=== PATIENT | male | born 1980 | race African-American/Black ===

== ENCOUNTER 2016-12-06 01:52 | Emergency (ER) | payer SELFPAY ==
[~2016-12-06 01:52] MED LIST: CYCL-36 PO; DICL50 PO; VENTAER INH
[2016-12-06 01:56] VITALS: BP 125/67; PULSE 100; RESP 16; TEMP 98.2; O2SAT 96
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
== END 2016-12-06 06:24 | disposition home or self-care (01) ==
LOC: NEPE 01:52
DX: S30.810A Abrasion of lower back and pelvis, initial encounter (principal); S00.01XA Abrasion of scalp, initial encounter; V03.90XA Pedestrian on foot injured in collision with car, pick-up truck or van, unspecified whether traffic or nontraffic accident, initial encounter; Y93.01 Activity, walking, marching and hiking
CPT/HCPCS: 70450; 71010; 72125; 99285

== ENCOUNTER 2017-01-24 05:20 | Emergency (ER) | payer SELFPAY ==
[~2017-01-24] VITALS: Ht 180.3 cm; Wt 70.0 kg
[2017-01-24 05:21] VITALS: BP 124/77; PULSE 100; RESP 15; TEMP 97.9; O2SAT 95
[2017-01-24 05:57] LABS: AUTOMATED NEUTROPHIL # 4.2 TH/MM3 (1.8-7.7); BASOPHIL # 0.1 TH/MM3 (0-0.2); BASOPHIL % 0.9 % (0.0-2.0); EOSINOPHIL # 0.2 TH/MM3 (0-0.4); EOSINOPHIL % 2.4 % (0.0-4.0); HEMATOCRIT 40.8 % (39.0-51.0); HEMOGLOBIN 13.7 GM/DL (13.0-17.0); LYMPH % 24.7 % (9.0-44.0); LYMPHOCYTE # 1.6 TH/MM3 (1.0-4.8); MEAN CELL VOLUME 89.9 FL (80.0-100.0); MEAN CORPUSCULAR HEMOGLOBIN 30.2 PG (27.0-34.0); MEAN CORPUSCULAR HGB CONC 33.6 % (32.0-36.0); MEAN PLATELET VOLUME 8.1 FL (7.0-11.0); MONO % 6.9 % (0.0-8.0); MONOCYTE # 0.5 TH/MM3 (0-0.9); NEUT % 65.1 % (16.0-70.0); PLATELET COUNT 168 TH/MM3 (150-450); RED BLOOD COUNT 4.54 MIL/MM3 (4.50-5.90); RED CELL DISTRIBUTION WIDTH 13.5 % (11.6-17.2); WHITE BLOOD COUNT 6.5 TH/MM3 (4.0-11.0)
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
[2017-01-24 06:23] LABS: ALKALINE PHOSPHATASE 89 U/L (45-117); ALT (GPT) 14 U/L (12-78); TOTAL BILIRUBIN ADULT 0.5 MG/DL (0.2-1.0); TOTAL PROTEIN 6.7 GM/DL (6.4-8.2)
[2017-01-24 07:00] LABS: ALBUMIN 3.4 GM/DL (3.4-5.0); AST (GOT) 14 U/L (15-37); BICARBONATE 25.3 MEQ/L (21.0-32.0); BLOOD UREA NITROGEN 9 MG/DL (7-18); CALCIUM 8.3 MG/DL (8.5-10.1); CHLORIDE 111 MEQ/L (98-107); CREATININE 0.88 MG/DL (0.60-1.30); GLOMERULAR FILTRATION RATE 120 ML/MIN (>89); GLUCOSE,RANDOM 92 MG/DL (74-106); SODIUM (NA) 144 MEQ/L (136-145)
[2017-01-24 09:13] VITALS: BP 113/64; PULSE 71; RESP 16; TEMP 97.9; O2SAT 96
--- NOTE | 2017-01-24 11:21 | PD ---
Data Data Last Documented VS Vital Signs Date Time Temp Pulse Resp B/P (MAP) Pulse Ox O2 Delivery O2 Flow Rate FiO2 01/24/17 09:13 97.9 71 16 113/64 (80) 96 Room Air Orders Orders Complete Blood Count With Diff (01/24/17 05:42) Comprehensive Metabolic Panel (01/24/17 05:42) Psych Screen (01/24/17 05:42) Drug Screen, Random Urine (01/24/17 05:42) Alcohol (Ethanol) (01/24/17 05:42) Diet Regular Basic (01/24/17 Breakfast) Labs Laboratory Tests Test 01/24/17 05:45 White Blood Count 6.5 TH/MM3 Red Blood Count 4.54 MIL/MM3 Hemoglobin 13.7 GM/DL Hematocrit 40.8 % Mean Corpuscular Volume 89.9 FL Mean Corpuscular Hemoglobin 30.2 PG Mean Corpuscular Hemoglobin Concent 33.6 % Red Cell Distribution Width 13.5 % Platelet Count 168 TH/MM3 Mean Platelet Volume 8.1 FL Neutrophils (%) (Auto) 65.1 % Lymphocytes (%) (Auto) 24.7 % Monocytes (%) (Auto) 6.9 % Eosinophils (%) (Auto) 2.4 % Basophils (%) (Auto) 0.9 % Neutrophils # (Auto) 4.2 TH/MM3 Lymphocytes # (Auto) 1.6 TH/MM3 Monocytes # (Auto) 0.5 TH/MM3 Eosinophils # (Auto) 0.2 TH/MM3 Basophils # (Auto) 0.1 TH/MM3 CBC Comment DIFF FINAL Differential Comment Blood Urea Nitrogen 9 MG/DL Creatinine 0.88 MG/DL Random Glucose 92 MG/DL Total Protein 6.7 GM/DL Albumin 3.4 GM/DL Calcium Level 8.3 MG/DL Alkaline Phosphatase 89 U/L Aspartate Amino Transf (AST/SGOT) 14 U/L Alanine Aminotransferase (ALT/SGPT) 14 U/L Total Bilirubin 0.5 MG/DL Sodium Level 144 MEQ/L Potassium Level 3.6 MEQ/L Chloride Level 111 MEQ/L Carbon Dioxide Level 25.3 MEQ/L Anion Gap 8 MEQ/L Estimat Glomerular Filtration Rate 120 ML/MIN Ethyl Alcohol Level 131 MG/DL [facility] Medical Record Reviewed: Yes Supervised Visit with GRANT: Yes Narrative Course Patient is a 36 year old male who was medically cleared by physician last night , he was seen by psychiatric screeners as he was feeling depressed as he was unable to see his son. Patient denies any suicidal or homicidal ideation. Patient was deemed safe to be discharged by psychiatric screeners with outpatient follow-up. Patient was given information for outpatient follow-up. Patient at this time contracts for safety, patient requests to be discharged to home. Patient understands that he may return to the emergency room at any time for reevaluation of his symptoms or if he ever feels unsafe. Patient will be discharged with diagnosis of depression. Diagnosis Primary Impression: Depression Qualified Codes: F32.9 - Major depressive disorder, single episode, unspecified Additional Impression: Alcohol intoxication Qualified Codes: F10.929 - Alcohol use, unspecified with intoxication, unspecified [facility] Patient Instructions: General Instructions Additional Instruction: Please follow up with your primary care doctor Please follow up with Bao Calderon Return to ER as needed or if symptoms return Please drink alcohol responsibly Scripts No Active Prescriptions or Reported Meds Disposition: 01 DISCHARGE HOME Condition: Stable Gisela Barlow DO Jan 24, 2017 11:21
== END 2017-01-24 11:36 | disposition home or self-care (01) ==
LOC: NEPD 05:20
DX: F32.9 Major depressive disorder, single episode, unspecified (principal); F10.929 Alcohol use, unspecified with intoxication, unspecified; H91.91 Unspecified hearing loss, right ear; F17.200 Nicotine dependence, unspecified, uncomplicated; Z87.09 Personal history of other diseases of the respiratory system; Z87.19 Personal history of other diseases of the digestive system
CPT/HCPCS: 80053; 80307; 85025; 99284

== ENCOUNTER 2017-02-05 01:30 | Emergency (ER) | payer OTHER ==
[~2017-02-05] VITALS: Ht 177.8 cm; Wt 70.0 kg
[2017-02-05 01:40] VITALS: BP 110/78; PULSE 75; RESP 16; TEMP 98.7; O2SAT 98
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
[2017-02-05 03:20] LABS: AUTOMATED NEUTROPHIL # 5.7 TH/MM3 (1.8-7.7); BASOPHIL # 0.1 TH/MM3 (0-0.2); BASOPHIL % 0.8 % (0.0-2.0); EOSINOPHIL # 0.1 TH/MM3 (0-0.4); EOSINOPHIL % 1.1 % (0.0-4.0); HEMATOCRIT 45.9 % (39.0-51.0); HEMO FLAGS DIFF FINAL; LYMPH % 23.1 % (9.0-44.0); LYMPHOCYTE # 1.8 TH/MM3 (1.0-4.8); MEAN CELL VOLUME 90.6 FL (80.0-100.0); MEAN CORPUSCULAR HEMOGLOBIN 30.3 PG (27.0-34.0); MEAN CORPUSCULAR HGB CONC 33.4 % (32.0-36.0); MONO % 3.4 % (0.0-8.0); NEUT % 71.6 % (16.0-70.0); PLATELET COUNT 170 TH/MM3 (150-450); RED BLOOD COUNT 5.07 MIL/MM3 (4.50-5.90); RED CELL DISTRIBUTION WIDTH 13.5 % (11.6-17.2); WHITE BLOOD COUNT 7.9 TH/MM3 (4.0-11.0)
[2017-02-05 03:31] LABS: ALT (GPT) 19 U/L (12-78); ANION GAP 11 MEQ/L (5-15); AST (GOT) 15 U/L (15-37); BLOOD UREA NITROGEN 14 MG/DL (7-18); CHLORIDE 104 MEQ/L (98-107); GLOMERULAR FILTRATION RATE 129 ML/MIN (>89); POTASSIUM 4.1 MEQ/L (3.5-5.1); SODIUM (NA) 138 MEQ/L (136-145)
[2017-02-05 03:34] LABS: ALKALINE PHOSPHATASE 74 U/L (45-117); TOTAL BILIRUBIN ADULT 1.6 MG/DL (0.2-1.0)
[2017-02-05 03:38] LABS: ACETAMINOPHEN LESS THAN 2.0 MCG/ML (10.0-30.0); ALCOHOL LESS THAN 3 MG/DL (0-5)
[2017-02-05 06:46] VITALS: BP 115/82; PULSE 75; RESP 16; O2SAT 97
[2017-02-05 11:59] VITALS: BP 95/52; PULSE 60; RESP 13; O2SAT 97
[2017-02-05 14:00] VITALS: BP 111/79; PULSE 57; RESP 18; TEMP 98.8; O2SAT 99
[2017-02-05 15:59] VITALS: BP_SYST 11; BP_SYST 111; BP_DIAS 79; PULSE 57; RESP 18; O2SAT 99
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
== END 2017-02-05 17:15 ==
LOC: NEPD 01:30 → NEPJ 17:15
DX: F39 Unspecified mood [affective] disorder (principal); F19.10 Other psychoactive substance abuse, uncomplicated; J45.909 Unspecified asthma, uncomplicated; Z72.0 Tobacco use
CPT/HCPCS: 80053; 80307; 85025; 99283

== ENCOUNTER 2017-02-17 21:18 | Emergency (ER) | payer SELFPAY ==
[2017-02-17 21:22] VITALS: BP 103/56; PULSE 67; RESP 14; TEMP 98.5; O2SAT 98
[2017-02-17 22:38] LABS: AUTOMATED NEUTROPHIL # 2.9 TH/MM3 (1.8-7.7); BASOPHIL # 0.1 TH/MM3 (0-0.2); BASOPHIL % 0.9 % (0.0-2.0); EOSINOPHIL # 0.3 TH/MM3 (0-0.4); HEMATOCRIT 44.5 % (39.0-51.0); LYMPH % 40.6 % (9.0-44.0); LYMPHOCYTE # 2.5 TH/MM3 (1.0-4.8); MEAN CELL VOLUME 90.4 FL (80.0-100.0); MEAN CORPUSCULAR HEMOGLOBIN 29.5 PG (27.0-34.0); MEAN CORPUSCULAR HGB CONC 32.6 % (32.0-36.0); MONO % 5.7 % (0.0-8.0); NEUT % 47.8 % (16.0-70.0); PLATELET COUNT 240 TH/MM3 (150-450); RED BLOOD COUNT 4.92 MIL/MM3 (4.50-5.90); WHITE BLOOD COUNT 6.1 TH/MM3 (4.0-11.0)
[2017-02-17 22:40] LABS: HEMO FLAGS AUTO DIFF
[2017-02-17 22:57] LABS: ALCOHOL LESS THAN 3 MG/DL (0-5); ANION GAP 7 MEQ/L (5-15); BICARBONATE 25.6 MEQ/L (21.0-32.0); BLOOD UREA NITROGEN 11 MG/DL (7-18); CHLORIDE 109 MEQ/L (98-107); GLOMERULAR FILTRATION RATE 80 ML/MIN (>89); POTASSIUM 4.1 MEQ/L (3.5-5.1); SODIUM (NA) 142 MEQ/L (136-145)
--- NOTE | 2017-02-18 00:42 | PD ---
HPI Chief Complaint: Depression Time Seen by Provider: 22:57 Travel History International Travel<30 days: No Contact w/Intl Traveler<30days: No Traveled to known affect area: No History of Present Illness HPI 36-year-old male requesting psychiatric evaluation. Patient states that he is feeling suicidal. Patient denies any headache. Patient denies any chest pain or shortness of breath. Patient denies abdominal pain. Patient denies any recent alcohol or drug abuse however has history of alcohol and drug abuse in the past. PFSH Past Medical History Asthma: Yes Depression: Yes Diminished Hearing: No GERD: Yes Neurologic: Yes (Brain Injury 2003 ) Immunizations Current: Yes Tetanus Vaccination: < 5 Years Influenza Vaccination: No Past Surgical History Other Surgery: Yes (STATES HX OF BRAIN BLEED WITH SURGERY/PREVIOUS TRACH) Social History Alcohol Use: Yes (3-4 times per week) Tobacco Use: Yes Substance Use: Yes (pot) Allergies-Medications (Allergen,Severity, Reaction): Coded Allergies: No Known Allergies (Verified Adverse Reaction, Unknown, 02/17/17) Reported Meds & Prescriptions Reported Meds & Active Scripts Active No Active Prescriptions or Reported Medications Review of Systems General / Constitutional: No: Fever Eyes: No: Visual changes HENT: No: Headaches Cardiovascular: No: Chest Pain or Discomfort Respiratory: No: Shortness of Breath Gastrointestinal: No: Abdominal Pain Genitourinary: No: Dysuria Musculoskeletal: No: Pain Skin: No Rash Neurologic: No: Weakness Psychiatric: No: Depression Endocrine: No: Polydipsia Hematologic/Lymphatic: No: Easy Bruising Physical Exam Narrative GENERAL: Well-nourished, well-developed patient. SKIN: Focused skin assessment warm/dry. HEAD: Normocephalic. EYES: No scleral icterus. No injection or drainage. NECK: Supple, trachea midline. No JVD or lymphadenopathy. CARDIOVASCULAR: Regular rate and rhythm without murmurs, gallops, or rubs. RESPIRATORY: Breath sounds equal bilaterally. No accessory muscle use. GASTROINTESTINAL: Abdomen soft, non-tender, nondistended. MUSCULOSKELETAL: No cyanosis, or edema. BACK: Nontender without obvious deformity. No CVA tenderness. Neurologic exam normal. Data Data Last Documented VS Vital Signs Date Time Temp Pulse Resp B/P (MAP) Pulse Ox O2 Delivery O2 Flow Rate FiO2 02/17/17 22:46 20 02/17/17 21:22 98.5 67 103/56 (72) 98 Room Air Orders Orders Complete Blood Count With Diff (02/17/17 21:32) Basic Metabolic Panel (Bmp) (02/17/17 21:32) Psych Screen (02/17/17 21:32) Drug Screen, Random Urine (02/17/17 21:32) Alcohol (Ethanol) (02/17/17 21:32) Labs Laboratory Tests Test 02/17/17 22:00 02/17/17 22:41 White Blood Count 6.1 TH/MM3 Red Blood Count 4.92 MIL/MM3 Hemoglobin 14.5 GM/DL Hematocrit 44.5 % Mean Corpuscular Volume 90.4 FL Mean Corpuscular Hemoglobin 29.5 PG Mean Corpuscular Hemoglobin Concent 32.6 % Red Cell Distribution Width 13.0 % Platelet Count 240 TH/MM3 Mean Platelet Volume 8.3 FL Neutrophils (%) (Auto) 47.8 % Lymphocytes (%) (Auto) 40.6 % Monocytes (%) (Auto) 5.7 % Eosinophils (%) (Auto) 5.0 % Basophils (%) (Auto) 0.9 % Neutrophils # (Auto) 2.9 TH/MM3 Lymphocytes # (Auto) 2.5 TH/MM3 Monocytes # (Auto) 0.3 TH/MM3 Eosinophils # (Auto) 0.3 TH/MM3 Basophils # (Auto) 0.1 TH/MM3 CBC Comment AUTO DIFF Blood Urea Nitrogen 11 MG/DL Creatinine 1.25 MG/DL Random Glucose 102 MG/DL Calcium Level 8.5 MG/DL Sodium Level 142 MEQ/L Potassium Level 4.1 MEQ/L Chloride Level 109 MEQ/L Carbon Dioxide Level 25.6 MEQ/L Anion Gap 7 MEQ/L Estimat Glomerular Filtration Rate 80 ML/MIN Ethyl Alcohol Level LESS THAN 3 MG/DL Urine Opiates Screen NEG Urine Barbiturates Screen NEG Urine Amphetamines Screen NEG Urine Benzodiazepines Screen NEG Urine Cocaine Screen NEG Urine Cannabinoids Screen POS MDM Medical Decision Making Medical Screen Exam Complete: Yes Emergency Medical Condition: Yes Differential Diagnosis Differential diagnosis including depression, suicidal, adjustment disorder. Narrative Course 36-year-old male with suicidal ideation. Scripts No Active Prescriptions or Reported Meds Leonardo Bains MD Feb 18, 2017 00:42
[2017-02-18 00:58] LABS: PLATELET ESTIMATE SMEAR NORMAL (NORMAL); PLATELET MORPHOLOGY ENLARGED (NORMAL); SCAN/DIFF AUTO DIFF CONFIRMED
[2017-02-18 01:30] LABS: ALKALINE PHOSPHATASE 92 U/L (45-117); TOTAL BILIRUBIN ADULT 0.7 MG/DL (0.2-1.0)
[2017-02-18 01:35] LABS: ALT (GPT) 23 U/L (12-78); ANION GAP 10 MEQ/L (5-15); AST (GOT) 25 U/L (15-37); BICARBONATE 24.2 MEQ/L (21.0-32.0); BLOOD UREA NITROGEN 10 MG/DL (7-18); CHLORIDE 110 MEQ/L (98-107); GLOMERULAR FILTRATION RATE 83 ML/MIN (>89); SODIUM (NA) 144 MEQ/L (136-145)
[2017-02-18 01:36] LABS: POTASSIUM 4.2 MEQ/L (3.5-5.1)
[2017-02-18 06:10] VITALS: BP 117/73; PULSE 52; RESP 18
[2017-02-18 13:09] VITALS: BP 97/53; PULSE 51; RESP 17; TEMP 98.7; O2SAT 99
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
--- NOTE | 2017-02-18 16:08 | PD ---
Physical Exam Date Seen by Provider: Feb 18, 2017 Time Seen by Provider: 16:04 Narrative 36 yo male that presents to the ED for evaluation of voluntary psych evaluation. Patient was seen by previous provider. Please refer to his note. Seen by psychiatry teacher and I was asked to dispo patient. Patient has no medical complains to me. Given bus passes to outpatient [facility]. patient agrees with this plan. Data Data Last Documented VS Vital Signs Date Time Temp Pulse Resp B/P (MAP) Pulse Ox O2 Delivery O2 Flow Rate FiO2 02/18/17 15:58 02/18/17 13:09 98.7 51 17 99 02/18/17 06:10 Room Air Orders Orders Complete Blood Count With Diff (02/17/17 21:32) Basic Metabolic Panel (Bmp) (02/17/17 21:32) Psych Screen (02/17/17 21:32) Drug Screen, Random Urine (02/17/17 21:32) Alcohol (Ethanol) (02/17/17 21:32) Comprehensive Metabolic Panel (02/18/17 00:39) Diet Regular Basic (02/18/17 Breakfast) Diet Regular Basic (02/18/17 Lunch) Ed Discharge Order (02/18/17 15:56) Labs Laboratory Tests Test 02/17/17 22:00 02/17/17 22:41 White Blood Count 6.1 TH/MM3 Red Blood Count 4.92 MIL/MM3 Hemoglobin 14.5 GM/DL Hematocrit 44.5 % Mean Corpuscular Volume 90.4 FL Mean Corpuscular Hemoglobin 29.5 PG Mean Corpuscular Hemoglobin Concent 32.6 % Red Cell Distribution Width 13.0 % Platelet Count 240 TH/MM3 Mean Platelet Volume 8.3 FL Neutrophils (%) (Auto) 47.8 % Lymphocytes (%) (Auto) 40.6 % Monocytes (%) (Auto) 5.7 % Eosinophils (%) (Auto) 5.0 % Basophils (%) (Auto) 0.9 % Neutrophils # (Auto) 2.9 TH/MM3 Lymphocytes # (Auto) 2.5 TH/MM3 Monocytes # (Auto) 0.3 TH/MM3 Eosinophils # (Auto) 0.3 TH/MM3 Basophils # (Auto) 0.1 TH/MM3 CBC Comment AUTO DIFF Differential Comment AUTO DIFF CONFIRMED Platelet Estimate NORMAL Platelet Morphology Comment ENLARGED Blood Urea Nitrogen 10 MG/DL Creatinine 1.21 MG/DL Random Glucose 98 MG/DL Total Protein 6.9 GM/DL Albumin 3.5 GM/DL Calcium Level 8.6 MG/DL Alkaline Phosphatase 92 U/L Aspartate Amino Transf (AST/SGOT) 25 U/L Alanine Aminotransferase (ALT/SGPT) 23 U/L Total Bilirubin 0.7 MG/DL Sodium Level 144 MEQ/L Potassium Level 4.2 MEQ/L Chloride Level 110 MEQ/L Carbon Dioxide Level 24.2 MEQ/L Anion Gap 10 MEQ/L Estimat Glomerular Filtration Rate 83 ML/MIN Ethyl Alcohol Level LESS THAN 3 MG/DL Urine Opiates Screen NEG Urine Barbiturates Screen NEG Urine Amphetamines Screen NEG Urine Benzodiazepines Screen NEG Urine Cocaine Screen NEG Urine Cannabinoids Screen POS MDM Medical Record Reviewed: Yes Supervised Visit with GRANT: No Differential Diagnosis depression vs suicidal ideation vs mood disorder vs substance abuse Narrative Course 36 yo male that presents to the ED for evaluation of voluntary psych evaluation. Patient was seen by previous provider. Please refer to his note. Seen by psychiatry teacher and I was asked to dispo patient. Patient has no medical complains to me. labs ressuring with positive cannabinoids. Given bus passes to outpatient [facility]. patient agrees with this plan. Diagnosis Primary Impression: Substance abuse Patient Instructions: General Instructions Additional Instruction: F/u with [facility]. See ED if worsening symptoms. Med/Other Pt SpecificInfo: No Change to Meds Scripts No Active Prescriptions or Reported Meds Disposition: 01 DISCHARGE HOME Condition: Stable Ramsey Zelaya Feb 18, 2017 16:08
== END 2017-02-18 17:31 | disposition home or self-care (01) ==
LOC: NEPD 21:18 → NEPJ 02-18 17:31
DX: F19.94 Other psychoactive substance use, unspecified with psychoactive substance-induced mood disorder (principal); F12.10 Cannabis abuse, uncomplicated; J45.909 Unspecified asthma, uncomplicated; F32.9 Major depressive disorder, single episode, unspecified; K21.9 Gastro-esophageal reflux disease without esophagitis; Z72.0 Tobacco use; Z59.0 Homelessness
CPT/HCPCS: 80048; 80053; 80307; 85025; 99284

== ENCOUNTER 2017-03-16 11:46 | Emergency (ER) | payer OTHER ==
[2017-03-16 11:47] VITALS: BP 114/64; PULSE 85; RESP 16; TEMP 98.4; O2SAT 98
[2017-03-16] MEDS ORDERED: CYCL10TA PO (13:15)
[2017-03-16] MEDS ORDERED: KETOROLAC TROMETHAMINE 60 MG/2 ML (IM) VIAL IM ONE (13:15)
[2017-03-16] MEDS ORDERED: IBUP1TAB7 PO (13:15)
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
== END 2017-03-16 13:42 | disposition home or self-care (01) ==
LOC: NEPD 11:46
DX: S39.012A Strain of muscle, fascia and tendon of lower back, initial encounter (principal); V49.50XA Passenger injured in collision with unspecified motor vehicles in traffic accident, initial encounter; Y92.488 Other paved roadways as the place of occurrence of the external cause
CPT/HCPCS: 96372; 99284; J1885

== ENCOUNTER 2017-08-29 11:24 | Emergency (ER) | payer SELFPAY ==
[~2017-08-29] VITALS: Ht 180.3 cm; Wt 68.2 kg
[~2017-08-29 11:24] MED LIST changes: -CYCL-36 PO; +CYCL10TA PO; -DICL50 PO; +IBUP1TAB7 PO; -VENTAER INH
[2017-08-29 11:25] VITALS: BP 107/72; PULSE 71; RESP 18; TEMP 98.3; O2SAT 98
[2017-08-29] MEDS ORDERED: KETOROLAC TROMETHAMINE 60 MG/2 ML (IM) VIAL IM ONE (12:00)
[2017-08-29] MEDS ORDERED: NAPR500T2 PO (12:09)
[2017-08-29] MEDS ORDERED: PREPCRE RECTAL (12:09)
[2017-08-29] MEDS ORDERED: COLA100C5 PO (12:09)
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
== END 2017-08-29 12:45 | disposition home or self-care (01) ==
LOC: NEPD 11:24
DX: K64.9 Unspecified hemorrhoids (principal); G89.29 Other chronic pain; M54.5 Low back pain; Z72.0 Tobacco use
CPT/HCPCS: 96372; 99283; J1885

== ENCOUNTER 2017-09-13 08:05 | Emergency (ER) | payer SELFPAY ==
[~2017-09-13] VITALS: Ht 177.8 cm; Wt 75.0 kg
[2017-09-13 08:05] VITALS: PULSE 59; RESP 16; TEMP 98.2; O2SAT 99
[~2017-09-13 08:05] MED LIST changes: +COLA100C5 PO; -CYCL10TA PO; -IBUP1TAB7 PO; +NAPR500T2 PO; +PREPCRE RECTAL
[2017-09-13 08:23] VITALS: BP 108/64; PULSE 56; RESP 18; O2SAT 97
--- NOTE | 2017-09-13 08:42 | PD ---
HPI Chief Complaint: GI Complaint Time Seen by Provider: 08:24 Travel History International Travel<30 days: No Contact w/Intl Traveler<30days: No Traveled to known affect area: No History of Present Illness HPI The patient is a 37-year-old male who presents to the emergency department for a cough. The patient states he has had a dry nonproductive cough for the last 3 weeks. The patient states sometimes he will cough so hard he feels like he is going to vomit, however, he does not vomit. He does have a history of tobacco use, last cigarette 1-1/2 hours ago. He also intermittently smokes marijuana. The patient denies any history of pertussis, HIV, COPD, or tuberculosis. He denies any fever, chills, or sweats. The patient denies any accompanying chest pain, vomiting, diarrhea, or abdominal pain. Symptoms are moderate. The patient denies any significant nasal congestion or postnasal drip. The patient denies taking any JUAN inhibitors or ARB's for hypertension. PFSH Past Medical History Asthma: Yes Depression: Yes Cardiovascular Problems: Yes (HEART MURMUR) Diminished Hearing: No GERD: Yes Neurologic: Yes (Brain Injury 2003 ) Respiratory: Yes (ASTHMA) Immunizations Current: No Tetanus Vaccination: < 5 Years Influenza Vaccination: No Past Surgical History Other Surgery: Yes (STATES HX OF BRAIN BLEED WITH SURGERY/PREVIOUS TRACH) Social History Alcohol Use: Yes (3-4 times per week) Tobacco Use: Yes Substance Use: Yes (marijuana) Allergies-Medications (Allergen,Severity, Reaction): Coded Allergies: No Known Allergies (Verified Adverse Reaction, Unknown, 08/29/17) Reported Meds & Prescriptions Reported Meds & Active Scripts Active Preparation H Topical (Yblnfhbuv-Zqpwfkrliymcq-Mxlfkkrh Topical) 1-0.25-14.4-15 % Cre 1 Applic RECTAL QID PRN 28 Days Colace (Docusate Sodium) 100 Mg Capsule 100 Mg PO BID Naproxen 500 Mg Tab 500 Mg PO BID Review of Systems Except as stated in HPI: all other systems reviewed are Neg General / Constitutional: No: Fever HENT: No: Lightheadedness Cardiovascular: No: Chest Pain or Discomfort Respiratory: Positive: Cough, No: Shortness of Breath, Wheezing, Sneezing Gastrointestinal: No: Nausea, Vomiting, Abdominal Pain Musculoskeletal: No: Weakness Hematologic/Lymphatic: No: Other (Denies any history of HIV) Physical Exam Narrative GENERAL: 37-year-old -[place] male who falls asleep easily. SKIN: Focused skin assessment warm/dry. HEAD: Atraumatic. Normocephalic. EYES: Pupils equal and round. Mild injection bilaterally. ENT: No nasal bleeding or discharge. Mucous membranes pink and moist. NECK: Trachea midline. No JVD. CARDIOVASCULAR: Regular rate and rhythm. No murmur appreciated. Heart rate in the 60s. RESPIRATORY: No accessory muscle use. Clear to auscultation. Breath sounds equal bilaterally. No audible wheezes, rales, rhonchi. GASTROINTESTINAL: Abdomen soft, non-tender, nondistended. No rebound tenderness. MUSCULOSKELETAL: No obvious deformities. No clubbing. No cyanosis. No edema. NEUROLOGICAL: Awake and alert. No obvious cranial nerve deficits. Motor grossly within normal limits. Normal speech. PSYCHIATRIC: Appropriate mood and affect; insight and judgment normal. Data Data Last Documented VS Vital Signs Date Time Temp Pulse Resp B/P (MAP) Pulse Ox O2 Delivery O2 Flow Rate FiO2 09/13/17 08:23 18 09/13/17 08:23 56 108/64 (79) 97 Room Air 09/13/17 08:05 98.2 Orders Orders Chest, Pa & Lat (09/13/17 ) [facility] Medical Decision Making Medical Screen Exam Complete: Yes Emergency Medical Condition: Yes Medical Record Reviewed: Yes Interpretation(s) Last Impressions Chest X-Ray 09/13/17 0000 Signed Impressions: CONCLUSION: Negative examination. Differential Diagnosis Differential diagnosis includes bronchitis, postnasal drip, GERD, PCP, atypical pneumonia, pneumonia, pleural effusion, psychogenic cough. Narrative Course A chest x-ray was obtained. The patient's vitals are within normal limits and physical exam is unremarkable, therefore, no laboratory evaluation was performed. Chest x-ray is unremarkable. The patient does have a history of asthma, has a dry nonproductive cough but no significant distress. Patient will be placed on prednisone and Bactrim twice a day for 7 days. He is advised to follow-up with a primary physician. Return if symptoms worsen or progress. Diagnosis Primary Impression: Cough Additional Impression: Bronchitis Patient Instructions: General Instructions Additional Instructions: Medications as directed. Follow-up with your primary physician. Return if symptoms worsen or progress. Stop smoking. Med/Other Pt SpecificInfo: Prescription(s) given Scripts Albuterol 8.5 GM Inh (Proair Hfa 8.5 GM Inh) 90 Mcg/Act Aer 2 PUFF INH Q6H Y for SHORTNESS OF BREATH, #1 INHALER 0 Refills 108 mcg/actuation Prov: Michael Hitchcock MD 09/13/17 Sulfamethoxazole-Trimethoprim (Bactrim DS) 800-160 Mg Tab 1 TAB PO BID for Infection, #14 TAB 0 Refills Prov: Michael Hitchcock MD 09/13/17 Prednisone (21) 10 mg tab Dose Pack (Prednisone (21) 10 mg tab Dose Pack) 10 Mg Pack 10 MG PO DIRECTED for Inflammation, #1 DSPK 0 Refills Prov: Michael Hitchcock MD 09/13/17 Disposition: 01 DISCHARGE HOME Condition: Stable Michael Hitchcock MD Sep 13, 2017 08:42
--- NOTE | 2017-09-13 09:18 | RADRPT ---
EXAM DATE: 09/13/2017 9:11 AM EDT AGE/SEX: 37 years / Male INDICATIONS: Cough. CLINICAL DATA: This is the patient's initial encounter. Patient reports that signs and symptoms have been present for 1 day and indicates a pain score of Nonresponsive. MEDICAL/SURGICAL HISTORY: None. Craniotomy. COMPARISON: No prior exams available for comparison. FINDINGS: PA and lateral views of the chest demonstrate the lungs to be symmetrically aerated without evidence of mass, infiltrate or effusion. The cardiomediastinal contours are unremarkable. Osseous structures are intact. CONCLUSION: Negative examination. Electronically signed by: Cristhian Amador MD 09/13/2017 9:17 AM EDT
[2017-09-13] MEDS ORDERED: PRED10PA PO (09:52)
[2017-09-13] MEDS ORDERED: ALBUAER3 INH (09:52)
[2017-09-13] MEDS ORDERED: BACT800T5 PO (09:52)
[2017-09-13] MEDS ORDERED: PROM6.256 PO (09:56)
== END 2017-09-13 10:12 | disposition home or self-care (01) ==
LOC: NEPC 08:05
DX: R05 Cough (principal); J40 Bronchitis, not specified as acute or chronic; F12.90 Cannabis use, unspecified, uncomplicated; J45.909 Unspecified asthma, uncomplicated; K21.9 Gastro-esophageal reflux disease without esophagitis; Z72.0 Tobacco use
CPT/HCPCS: 71046; 99283